=== PATIENT | male | born 1960 | race Caucasian/White ===

== ENCOUNTER → 2024-11-05 07:16 | Outpatient (REF) | payer OTHER, SELFPAY | LOC: RAD 07:16 | PROVIDERS: ATTENDING PHYSICIAN Family Medicine; FAMILY PHYSICIAN Family Medicine | DX: E11.9 Type 2 diabetes mellitus without complications (principal); E78.2 Mixed hyperlipidemia; R79.89 Other specified abnormal findings of blood chemistry | CPT/HCPCS: 71046; 72052; 76700 ==